=== PATIENT | male | born 1945 | race Caucasian/White ===

== ENCOUNTER 2025-03-02 15:36 | Emergency (ER) | payer OTHER ==
[~2025-03-02] VITALS: Ht 165.1 cm; Wt 86.2 kg
[2025-03-02] MEDS ORDERED: IOHEXOL-350 75 ML VIAL IV ONE (16:13)
--- NOTE | 2025-03-02 17:36 | ERN ---
General Chief Complaint: Abdominal Pain Stated Complaint: LOWER ABD PAIN Time Seen by MD: 15:46 History of Present Illness Initial Comments 79-year-old male who presents for a CT scan. Patient has had for five days of epigastric pain and some discomfort. No nausea or vomiting or diarrhea. He is p.o. tolerant. No fevers. He went to his PCP and had lab work done including a CBC metabolic panel and lipase and urinalysis. CBC showed a white count of 10 K with a left shift. Normal renal function. Otherwise unremarkable workup. Dr. Oscar, the patient's PCP, sent him here for a CT scan of the abdomen and pelvis to ensure no serious pathology. Overall the patient reports mild pain, 3/10, generalized but mostly in the upper quadrants. 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 No chest pain or shortness of breath. Allergies: Coded Allergies: No Known Allergies (Unverified Allergy, Unknown, 03/02/25) Past Medical History Past Medical History: Diabetes-Type II, High Cholesterol, Hypertension Past Surgical History: Other Surgical History Other: BLADER BIOPSY ROS Dictation CONSTITUTIONAL: No chills, no fever, no weakness, no diaphoresis, no malaise. HEAD/FACE: No signs of trauma. EENT: No eye pain, no blurred vision, no tearing, no double vision, no ear pain, no ear discharge, no nose pain, no nasal congestion, no throat pain, no throat swelling, no mouth pain. RESPIRATORY: No cough, no orthopnea, no SOB, no stridor, no wheezing. CARDIOVASCULAR: No chest pain, no edema, no palpitations, no syncope. GASTROINTESTINAL/ABDOMINAL: Abdominal pain GENITOURINARY: No abnormal discharge, no dysuria, no frequent urination, no hematuria. No complaints of pain in the genitals. MUSCULOSKELETAL: No back pain, no gout, no joint pain, no joint swelling, no muscle pain, no muscle stiffness, no neck pain. INTEGUMENTARY: No change in color, no change in hair/nails, no dryness, no lesion, no lumps, no rash. NEUROLOGICAL/PSYCH: No anxiety, not depressed, no emotional problem, no headache, no numbness, no pre-existing deficit, no history of seizures, no tremors, no weakness. HEMATOLOGIC/LYMPHATIC: Not anemic, no history of blood clots, no apparent bleeding, no bruising, glands not swollen. All Systems Negative, Except as Noted. Physical Exam Physical Exam Dictation VITAL SIGNS: Reviewed. GENERAL APPEARANCE: Alert, oriented x3, no acute distress. HEAD AND FACE: Non-traumatic. EYES: PERRL, pink conjunctivas, eyelid no trauma, anterior chamber clear. EARS: Pinnas intact and no signs of trauma or erythema. Ear canals clear and no discharge. TMs no erythema. NOSE: No discharge, no bleeding. OROPHARYNX: Mouth normal, teeth no caries, tongue pink. Pharynx clear, no erythema. Tonsils no exudates, no abscesses noted. Mucous membrane moist. NECK: Supple, non-tender, no thyromegaly, no masses, no JVD, no bruits. BREAST: Deferred. CHEST: No tenderness, no crepitus, no paradoxical movement, no retractions. LUNGS: Clear, well-ventilated, symmetric, no rales, no wheezing, no rhonchi, no stridor, good breath sounds bilaterally. HEART: Regular rate, regular rhythm, no murmur, no gallops. VASCULAR: No peripheral edema. ABDOMEN: Soft, positive bowel sounds, nondistended, no guarding, nontender, no rebound, no masses no hepatomegaly, no splenomegaly, no Solo's sign, no hernias. RECTAL: Deferred. GENITAL: Deferred. NEUROLOGICAL: Normal speech, gross motor function intact, gross sensory function intact. MUSCULOSKELETAL: Neck nontender, full range of motion, back nontender, full range of motion. EXTREMITIES: Nontender, full range of motion. SKIN: Color pink, dry, no turgor, no rash, no lacerations, no abrasions, no contusions. LYMPHATICS: Deferred. MDM CC: Abdominal pain x5 days mom distention Historian: Patient Comorbidities: None No limitations [facility]. He has a lab work including CBC metabolic panel lipase liver enzymes done earlier today. Urinalysis. I reviewed his lab work. Nothing remarkable. CT scan here shows no acute abnormalities. Primary concern was for an obstruction. Does not appear to be any obstruction. No surgical pathology. Patient is stable. I discussed the case with the primary doctor he recommends that you returns to the clinic in 48 hours for re-evaluation. Patient agrees with the plan. ED Course Orders Procedure Category Date Status Time Ct Abdomen/Pelvis CT 03/02/25 Resulted W/Contrast 15:46 Iohexol (Omnipaque) PHA 03/02/25 Complete 16:13 Current Medications Medications (Trade) Dose Ordered Sig/Maritza Route PRN Reason Start Time Stop Time Status Last Admin Dose Admin Iohexol (Omnipaque) 75 ml STK-MED ONCE IV 03/02/25 16:13 03/02/25 16:13 DC Vital Signs Date Time Temp Pulse Resp B/P (MAP) Pulse Ox O2 Delivery O2 Flow Rate FiO2 03/02/25 18:01 98.4 62 16 124/62 96 Room Air* 0 21 03/02/25 16:19 98.4 65 16 126/60 96 Room Air* 0 21 03/02/25 15:39 98.2 67 16 125/62 96 Room Air 0 DX & DISP Disposition: Discharge Departure Impression: Primary Impression: Generalized abdominal pain Condition: Stable Additional Instructions: The CT scan of your abdomen and pelvis does not show any acute abnormalities. 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 These are unlikely to be causing your symptoms. Dr. Oscar completed blood work this morning. As we discussed it was relatively unremarkable. I recommend taking an [id number] antacid such as Maalox or ranitidine. Monitor your diet. Eat frequent small meals rather than large meals. Do not eat late at night. Avoid irritating foods such as spicy foods, caffeine, and alcohol. If you continue with symptoms for longer than 48 hours, please follow up with Dr. Oscar as an outpatient. Return to the emergency department if you have any concerning symptoms such as severe pain, persistent vomiting, high fevers, or any other concerning symptom. Referrals: SELF,REFERRAL (PCP) CHLOE MARRERO DO Mar 02, 2025 17:36
--- NOTE | 2025-03-02 17:45 | HMCIMG ---
EXAM: CT Abdomen and Pelvis with IV contrast CLINICAL HISTORY: Abdominal Pain TECHNIQUE: Axial computed tomography images of the abdomen and pelvis with intravenous contrast. CT scan performed according to ALARA. Automated exposure control used during exam. CONTRAST: with intravenous contrast. COMPARISON: None provided. FINDINGS: Lung bases are clear. Hepatomegaly and hepatic steatosis. Early enhancing focus within the inferior right hepatic lobe may reflect a hemangioma. There is no intrahepatic biliary ductal dilatation. Gallbladder, bilateral adrenal glands, spleen, and pancreas are unremarkable. 0.7 cm nonobstructing calculus within the inferior pole of the left kidney. Extrarenal pelvis on the left. No radiopaque renal calculus appreciated within the right kidney, along the course of either ureter, or within the bladder. There is no hydronephrosis. Bowel loops are normal in caliber without evidence of obstruction, ileus, or obvious bowel wall thickening. The appendix is normal. Fat-containing left inguinal hernia. Right inguinal hernia containing omental fat and nonincarcerated loops of small bowel. Prostate and send the vasculature are normal in caliber. There is no ascites or lymphadenopathy. Atherosclerotic vascular calcifications are noted. Opacified abdominal pelvic vessels are patent. There is no acute or suspicious osseous abnormality. IMPRESSION: 1. No acute intraabdominal or pelvic findings. 2. Bilateral inguinal hernias, with small bowel loops in the right hernia. /[place]
[2025-03-02 18:01] VITALS: BP 124/62; PULSE 62; RESP 16; TEMP 98.4; O2SAT 96
== END 2025-03-02 18:09 | disposition home or self-care (01) ==
LOC: EDH 15:36
DX: R10.84 Generalized abdominal pain (principal); E11.9 Type 2 diabetes mellitus without complications; E78.00 Pure hypercholesterolemia, unspecified; I10 Essential (primary) hypertension
CPT/HCPCS: 99285; 74177; Q9967